=== PATIENT | male | born 1965 | race Caucasian/White ===

== ENCOUNTER 2021-12-29 10:04 | Emergency (ER) | payer BC ==
[2021-12-29] MEDS ORDERED: BACTRIM DS TAB1 EACH PO (11:03)
[2021-12-29] MEDS ORDERED: CEPHALEXIN500 MG PO (11:03)
== END 2021-12-29 11:19 | disposition home or self-care (01) ==
LOC: ER1 10:04
DX: K11.20 Sialoadenitis, unspecified (principal); I10 Essential (primary) hypertension; Z88.0 Allergy status to penicillin
CPT/HCPCS: 99283